=== PATIENT | male | born 1965 | race African-American/Black ===

== ENCOUNTER 2023-02-03 11:35 | Emergency (ER) | payer OTHER ==
[~2023-02-03] VITALS: Ht 170.2 cm; Wt 103.0 kg
[2023-02-03] MEDS ORDERED: REMERON15 MG PO (11:47)
[2023-02-03] MEDS ORDERED: LIPITOR80 MG GT (11:48)
[2023-02-03 11:53] LABS: BASOPHILS 0.3 % (0-2); EOSINOPHILS 4.2 % (0-6); HEMATOCRIT 41.4 % (35.0-50.0); HEMOGLOBIN 13.3 g/dL (12.0-18.0); MCHC 32.2 g/dl (30-36); MCV 77.7 fl (81-99); NEUTROPHILS 50.5 % (39-80); PLATELET COUNT 210 K/uL (140-440); RBC 5.33 M/ul (4.3-5.7); RDW 15.8 (10.5-15.0)
[2023-02-03 12:19] LABS: ALBUMIN 3.8 g/dL (3.4-5.0); ALBUMIN/GLOBULIN RATIO 0.93 (1.1-2.4); ANION GAP 12.3 (7-21); BILIRUBIN, TOTAL 0.5 ng/dL (0.2-1.0); BUN/CREATININE RATIO 15.3 (6.0-28.6); CALCIUM 9.4 mg/dL (8.5-10.1); CREATININE, SERUM 0.98 mg/dL (0.70-1.30); MAGNESIUM 1.7 mg/dL (1.8-2.4); POTASSIUM 4.3 mmol/L (3.5-5.1); PROTEIN, TOTAL 7.9 g/dL (6.4-8.2)
[2023-02-03 13:50] VITALS: BP 136/86
--- NOTE | 2023-02-03 20:28 | EKG ---
[facility] [address] [facility] [place] [address] Signed Marked sinus bradycardia Inferior infarct (cited on or before 03-FEB-2023) Abnormal ECG When compared with ECG of 03-FEB-2023 11:35, (Unconfirmed) No significant change was found Confirmed by Dennis Qureshi MD () on 02/03/2023 8:28:35 PM Electronically Signed By: DENNIS QURESHI MD 02/03/232027 PATIENT NAME: MARILOU MISHRA Electrocardiogram DATE OF : 65 PHYSICIAN: DENNIS QURESHI MD REPORT #: [id number] REPORT IS CONFIDENTIAL AND NOT TO BE RELEASED WITHOUT AUTHORIZATION
== END 2023-02-03 13:52 | disposition home or self-care (01) ==
LOC: ED 11:35
PROVIDERS: Emergency Medicine
DX: R07.89 Other chest pain (principal); Z79.899 Other long term (current) drug therapy
CPT/HCPCS: 36415; 71045; 80053; 83735; 84484; 85025; 93005; 93010; 99285-25; A9270